=== PATIENT | female | born 1965 | race Caucasian/White ===

== ENCOUNTER → 2018-06-21 07:18 | Outpatient (CLI) | payer OTHER, SELFPAY ==
[2018-06-21 10:53] LABS: Cholesterol 207 mg/dL (200); Glucose 91 mg/dL (74-106); High Density Lipoprotein 79 mg/dL; Thyroid Stim Hormone (TSH) 3.88 uIU/mL (0.358-3.74); Triglycerides 64 mg/dL; Very Low Density Lipoprotein 13 mg/dL (5-40)
[2018-06-29 11:16] LABS: HPV HC, High Risk Negative (Negative)
[2018-06-29 11:48] LABS: HPV Reflexed? YES, CHARGE PATIENT
== END ==
PROVIDERS: Family Provider Family Medicine; PCP Family Medicine; Visit Provider Family Medicine
DX: Z12.4 Encounter for screening for malignant neoplasm of cervix (principal); Z01.419 Encounter for gynecological examination (general) (routine) without abnormal findings
CPT/HCPCS: 36415; 80061; 82947; 84443; 87624; 88175; G0145

== ENCOUNTER → 2018-11-24 12:01 | Outpatient (CLI) | payer OTHER, SELFPAY ==
--- NOTE | 2018-11-24 12:07 | BI_ITS ---
MAMMOGRAPHY - BILATERAL SCREENING REASON FOR EXAM: Female, 53 years old. Routine annual screening examination. PERTINENT HISTORY: Non-contributory. TECHNIQUE: Digital bilateral breast jessica (3D mammographic acquisition) in the CC and MLO projections. 2-D mediolateral oblique (MLO) and craniocaudad (CC) views of both breasts were obtained. CAD: Full Field Digital Mammography with Computer Added Detection was performed. COMPARISON: Comparison is made with prior study dated August 13, 2017 and October 27, 2015. FINDINGS: Breast Composition: The breasts are extremely dense, which lowers the sensitivity of mammography. There are no dominant masses or suspicious calcifications. No other significant abnormalities are identified. There has been no significant change since the prior study. BI/SCREENING MAMM (CAD), BILAT IMPRESSION: Stable bilateral screening mammogram. Yearly follow-up mammogram recommended. (A) ASSESSMENT CATEGORY: BIRADS Category 1: Negative. A letter regarding these results will be sent to the patient by the facility within 30 days. Approximately 10% of breast cancers are not detected by mammography. A normal mammogram should not delay biopsy of a clinically suspicious abnormality. [id number] Electronically Signed: Filiberto Bolivar MD at 13:28 EST Tel [phone], Service support ,
== END ==
PROVIDERS: Family Provider Family Medicine; PCP Family Medicine; Visit Provider Nurse Practitioner Adult Health
DX: Z12.31 Encounter for screening mammogram for malignant neoplasm of breast (principal)
CPT/HCPCS: 77063; 77067

== ENCOUNTER → 2019-03-27 11:13 | Outpatient (CLI) | payer OTHER, SELFPAY ==
[2019-03-27 14:17] LABS: Ferritin 62 ng/mL (8-252); Follicle Stimulating Hormone 115.3 mIU/mL; Luteinizing Hormone 51.4 mIU/mL; T4 Free Direct 0.93 ng/dL (0.76-1.46); Thyroid Stim Hormone (TSH) 2.62 uIU/mL (0.358-3.74)
== END ==
PROVIDERS: Family Provider Family Medicine; PCP Family Medicine; Referring Provider Family Medicine; Visit Provider Family Medicine
DX: R79.89 Other specified abnormal findings of blood chemistry (principal); N95.1 Menopausal and female climacteric states; Z86.2 Personal history of diseases of the blood and blood-forming organs and certain disorders involving the immune mechanism
CPT/HCPCS: 36415; 82728; 83001; 83002; 84439; 84443

== ENCOUNTER → 2020-10-21 11:24 | Outpatient (CLI) | payer OTHER, SELFPAY | PROVIDERS: PCP Family Medicine; Referring Provider Family Medicine; Visit Provider Registered Nurse | DX: Z20.828 Contact with and (suspected) exposure to other viral communicable diseases (principal) | CPT/HCPCS: 87635; U0003 ==

== ENCOUNTER → 2021-04-03 07:58 | Outpatient (CLI) | payer OTHER, SELFPAY ==
[2021-04-03 10:09] LABS: Absolute Neutrophil Count 2.9 X10^3/uL (2.0-7.7); Basophil# 0.06 X10^3/uL; Basophil% 1.1 % (0-1); Eosinophils% 1.8 % (0-5); Hematocrit 44.8 % (37-47); Hemoglobin 14.2 g/dL (12.0-15.0); Mean Corp Hgb Conc 31.7 g/dL (32-36); Mean Corpuscular Hgb 28.8 pg (27.0-32.0); Mean Corpuscular Volume 90.9 fL (81-99); Mean Platelet Vol. 10.9 fl (6.2-12.0); Monocyte# 0.53 X10^3/uL; Monocyte% 9.3 % (0-10); NRBC Flagged by Analyzer 0 % (0-5); Neutrophil # 2.88 X10^3/uL (2.7-7.7); Neutrophil % 50.6 % (47-70); Platelet Count 244 K/mm3 (150-450); RBC Distribution Width CV 11.9 % (11.6-14.6); RBC Distribution Width SD 40.1 fl (35.1-43.9); Red Blood Count 4.93 M/mm3 (4.2-5.4); White Blood Count 5.7 K/mm3 (4.4-11.0)
[2021-04-03 10:35] LABS: Cholesterol 220 mg/dL (200); High Density Lipoprotein 94 mg/dL; Thyroid Stim Hormone (TSH) 3.97 uIU/mL (0.358-3.74)
[2021-04-04 09:15] LABS: T4 Free Direct 0.95 ng/dL (0.76-1.46)
== END ==
PROVIDERS: PCP Family Medicine; Referring Provider Family Medicine; Visit Provider Family Medicine
DX: Z13.220 Encounter for screening for lipoid disorders (principal); K13.79 Other lesions of oral mucosa; R79.89 Other specified abnormal findings of blood chemistry
CPT/HCPCS: 36415; 82465; 83718; 84439; 84443; 85025

== ENCOUNTER → 2021-05-01 11:59 | Outpatient (CLI) | payer OTHER, SELFPAY ==
--- NOTE | 2021-05-01 12:01 | BI_ITS ---
MAMMOGRAPHY - BILATERAL SCREENING REASON FOR EXAM: Female, 56 years old. Routine annual screening examination. PERTINENT HISTORY: Non-contributory. TECHNIQUE: Digital bilateral breast eli (3D mammographic acquisition) in the CC and MLO projections. 2-D mediolateral oblique (MLO) and craniocaudad (CC) views of both breasts were obtained. CAD: Full Field Digital Mammography with Computer Added Detection was performed. COMPARISON: Comparison is made with prior study dated 11/24/2018 and 08/13/2017. FINDINGS: Breast Composition: The breasts are extremely dense, which lowers the sensitivity of mammography. There are no dominant masses or suspicious calcifications. No other significant abnormalities are identified. There has been no significant change since the prior study. BI/SCRN MAMM (CAD)W/ELI BILAT IMPRESSION: Stable bilateral screening mammogram. Yearly follow-up mammogram recommended. (A) ASSESSMENT CATEGORY: BIRADS Category 1: Negative. A letter regarding these results will be sent to the patient by the facility within 30 days. Approximately 10% of breast cancers are not detected by mammography. A normal mammogram should not delay biopsy of a clinically suspicious abnormality. [id number] Electronically Signed: Filiberto Bolivar MD at 12:56 EDT , Service support ,
== END ==
PROVIDERS: PCP Family Medicine; Referring Provider Obstetrics & Gynecology; Visit Provider Obstetrics & Gynecology
DX: Z12.31 Encounter for screening mammogram for malignant neoplasm of breast (principal)
CPT/HCPCS: 77063; 77067

== ENCOUNTER → 2023-04-22 | Outpatient (CLI) | payer OTHER, SELFPAY ==
--- NOTE | 2023-04-22 09:59 | BI_ITS ---
MAMMOGRAPHY - BILATERAL SCREENING REASON FOR EXAM: Female, 58 years old. Routine annual screening examination. PERTINENT HISTORY: Non-contributory. TECHNIQUE: Digital bilateral breast eli (3D mammographic acquisition) in the CC and MLO projections. 2-D mediolateral oblique (MLO) and craniocaudad (CC) views of both breasts were obtained. CAD: Full Field Digital Mammography with Computer Added Detection was performed. COMPARISON: Comparison is made with the prior study dated May 01, 2021 and November 24, 2018. FINDINGS: Breast Composition: The breasts are extremely dense, which lowers the sensitivity of mammography. There are no dominant masses or suspicious calcifications. No other significant abnormalities are identified. There has been no significant change since the prior study. BI/SCRN MAMM (CAD)W/ELI BILAT IMPRESSION: Stable bilateral screening mammogram. Yearly follow-up mammogram recommended. (A) ASSESSMENT CATEGORY: BIRADS Category 1: Negative. A letter regarding these results will be sent to the patient by the facility within 30 days. Approximately 10% of breast cancers are not detected by mammography. A normal mammogram should not delay biopsy of a clinically suspicious abnormality. [id number] Electronically Signed: Filiberto Bolivar MD at 10:42 EDT ,
== END | disposition home or self-care (01) ==
LOC: OPBI 09:56
PROVIDERS: PCP Family Medicine; Referring Provider Obstetrics & Gynecology; Visit Provider Obstetrics & Gynecology
DX: Z12.31 Encounter for screening mammogram for malignant neoplasm of breast (principal)
CPT/HCPCS: 77063; 77067

== ENCOUNTER 2024-07-11 12:53 | Inpatient (IN) | payer OTHER, SELFPAY ==
[2024-07-11] VITALS (8 sets, daily range): BP systolic 92–160; BP diastolic 68–105; PULSE 64–81; RESP 16–22; TEMP 36.6–37.3; O2SAT 96–100; BMI 23.0; BMI 22.2
--- NOTE | 2024-07-11 13:36 | EDS_ITS ---
HPI History of Present Illness Chief Complaint: General Illness Informant: patient Onset/Context/Timing Onset: Days Context: Gradual Onset Timing: Intermittent Current Severity: Mild Maximum Severity: Mild Narrative Narrative: 59-year-old female tested positive for COVID yesterday. She is on Paxlovid. Having nausea vomiting diarrhea for the last 24 hours. Feels lightheaded. Denies dysuria. Denies shortness of breath. 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 Denies any black or bloody stools. Prior similar symptoms: No Recent Illness/Hospitalization: No PFSH PFSH Medical History Addisons disease Home Medications ?Medication ?Instructions ?Recorded ?Last Taken ?Type dexamethasone 6 mg tablet See Rx Instructions PO .COMPLEX 07/11/24 Unknown History STEROID estradiol 0.5 mg/0.5 gram (0.1 %) 1 packet transdermal DAILY HORMONES 07/11/24 Unknown History transdermal gel packet fludrocortisone 0.1 mg tablet 0.05 mg PO DAILY ADDISONS DISEASE 07/11/24 Unknown History nirmatrelvir 300 mg (150 mg 1 tab PO UD COVID 07/11/24 Unknown History x2)-ritonavir 100 mg tablet,dose pack (Paxlovid) progesterone micronized 100 mg 100 mg PO QHS HORMONES 07/11/24 Unknown History capsule Allergy/AdvReac Type Severity Reaction Status Date / Time amoxicillin Allergy RASH Verified 07/11/24 13:05 Social History Smoking Status: Never smoker ROS ROS ED ROS Narrative Nausea, vomiting diarrhea. Cough. Constitutional Constitutional ED: Denies chills or fever(s) Eyes Eyes: Denies blurry vision ENT ENT ED: Denies ear pain Cardiovascular Cardiovascular: Denies chest pain Respiratory/Chest Respiratory/Chest: Reports cough Gastrointestinal Gastrointestinal: Reports diarrhea, nausea and vomiting; Denies abdominal pain, constipation or melena Genitourinary Genitourinary ED: Denies dysuria or hematuria Musculoskeletal Musculoskeletal: Denies arthralgias or back pain Integumentary Denies abscess or Abrasions Neurologic Neurologic: Denies headache(s) Psychiatric Psychiatric: Denies anxiety or depression Endocrine Endocrinology: Denies cold intolerance Hematologic/Lymphatic Hematologic/Lymphatic: Reports none Allergic/Immunologic Allergic/Immunologic ED: Denies mouth swelling, tongue swelling or urticaria EXAM Physical Exam Narrative Exam Narrative: 59-year-old female vital signs are stable afebrile. She does not look septic toxic no acute distress. Pulse ox 98% on room air no hypoxia. Daughter present in room. H EENT exam pupils round reactive light. Currently her mucous membranes are moist and pink. Neck nontender. No lymphadenopathy. Lungs clear to auscultation bilaterally. Heart regular rate and rhythm rate about 65 no murmur. Chest wall ribs are nontender. Abdomen soft nontender. Moving all 4 extremities. 5 out of 5 insurance account specialist strength. Dorsi plantarflexion intact. Nontender. No edema or cords. Neurologically she is awake alert no focal motor deficits. Const Vital Signs: 07/11/24 12:53 07/11/24 13:02 07/11/24 14:46 Temperature 98.2 F Temperature Source Temporal Pulse Rate 67 Respiratory Rate 16 Respiratory Pattern Normal Blood Pressure 160/105 H 101/71 Blood Pressure [Lying] Blood Pressure [Standing (for 1 minute prior to obtaining)] Blood Pressure Mean 123 81 Blood Pressure Mean [Lying] Blood Pressure Mean [Standing (for 1 minute prior to obtaining)] Pulse Ox 98 Oxygen Delivery Method Room Air 07/11/24 15:19 Temperature Temperature Source Pulse Rate Respiratory Rate Respiratory Pattern Blood Pressure Blood Pressure [Lying] 105/76 Blood Pressure [Standing (for 1 minute prior to obtaining)] 101/72 Blood Pressure Mean Blood Pressure Mean [Lying] 85 Blood Pressure Mean [Standing (for 1 minute prior to obtaining)] 81 Pulse Ox Oxygen Delivery Method Positive well nourished and well developed; Negative for cachectic, contractures or unkempt General Appearance ED: well developed; Negative for unkempt, cachectic, contractures or pallor Nutritional Appearance: Negative for cachectic HEENT Reports moist mucous membranes; Denies dry mucous membranes or other Negative for trauma, tenderness or other Mouth ED: No dry mucous membranes Mouth: No dry mucous membranes Eyes PERRL and EOMs intact bilaterally General Eye ED: Negative for pale conjunctiva, scleral icterus or other Neck no lymphadenopathy, supple and no JVD General: Negative for tenderness Lymph Lymphatic: Negative for other Chest Wall inspection of chest normal and palpation of chest normal Chest: Negative for other Resp normal respiratory effort and clear to auscultation bilaterally Effort and Inspection: Negative for retractions Auscultation: Negative for rales, rhonchi, wheezes or diminished lung sounds Cardio regular rate, regular rhythm, S1 normal heart sound, S2 normal heart sound and no murmurs GI normal to inspection, nondistended, normoactive bowel sounds, non-tender, non- distended and no masses Auscultation: normoactive bowel sounds Palpation: soft; Negative for tender or guarding Back/Spine no CVA tenderness General Back: Negative for CVA tenderness Cervical Spine: Negative for cervical spine tenderness Thoracic Spine / Upper Back: Negative for thoracic spinal tenderness Lumbar Spine / Lower Back: Negative for lumbar spinal tenderness Extremity normal to inspection General Extremety ED: Negative for edema or tenderness General Extremity: Negative for edema Neuro oriented x3 and CN's II-XII intact bilaterally Sensorium / Orientation: alert; Negative for orientation impaired, lethargic or stuporous Motor Exam: strength 5/5 throughout Psych mental status grossly normal Appearance: Negative for unkempt Attitude: No agitated Mood & Affect: Negative for depressed or tearful Skin no rashes or lesions noted and no wounds General Skin Exam: Negative for jaundice or pallor Lesions: No lesion noted Rashes: No rashes noted Trauma: Negative for abrasion Wounds: Negative for wounds noted MDM MDM MDM Narrative Medical decision making narrative: 59-year-old female history of Alexander's with COVID and on Paxlovid with nausea, vomiting diarrhea. Clinically she looks well. She is anxious. I do not think this is an Alexander's crisis. I think she is just dehydrated. She will be treated IV fluids. Will get screening labs. Repeat exam at 3:30 PM. Patient doing well. Resting comfortably. Feeling somewhat improved. She did get a liter normal saline. Right now she is drinking some Gatorade and eating some crackers. I discussed with her her test results. Her sodium is only 121. She said a week ago she had labs at the [facility] and she believes her sodium was around 135 at that time. I explained to her we need to admit her to the hospital and continue to improve on her sodium level. She is comfortable with the plan. Hospitalist on page. History & Record Review Discussion w/independent historian: Patient and Family Additional record(s) reviewed:: Prior inpatient record, Prior outpatient record, Prior ED visit and Prior labs Lab Data Attestation: I reviewed the patient's lab results. Lab results narrative: CBC unremarkable white count of 4. H&H 12.4 and 36.5. Platelets 159. Electrolytes show sodium 121. Gap 6. BUN and creatinine normal at 13 and 0.6. Glucose 112. Labs: Laboratory Results - last 24 hr 07/11/24 13:47 WBC 4.3 L RBC 4.15 L Hgb 12.4 Hct 36.5 L MCV 88.0 MCH 29.9 MCHC 34.0 RDW Std Deviation 38.3 RDW Coeff of Thanh 11.9 Plt Count 159 MPV 10.5 Immature Gran % (Auto) 0.500 Neut % (Auto) 80.0 H Lymph % (Auto) 9.3 L [place] % (Auto) 9.3 Eos % (Auto) 0.0 Baso % (Auto) 0.9 Absolute Neuts (auto) 3.4 Absolute Lymphs (auto) 0.40 L Nucleated RBC % 0 Sodium 121 L Potassium 3.6 Chloride 90 L Carbon Dioxide 25.0 Anion Gap 6 BUN 13 Creatinine 0.65 Estim Creat Clear Calc 95.17 Est GFR (MDRD) Af Amer 120 Est GFR (MDRD) Non-Af 99 BUN/Creatinine Ratio 20.0 Glucose 112 H Calcium 7.8 L Rhythm Strip Rhythm Strip: Sinus Rhythm Rate: 72 Ectopy: None EKG Initial EKG: Attestation: I personally reviewed and interpreted this EKG as follows: Interpretation: Sinus Rhythm and No Acute Injury Pattern Comments: Normal sinus rhythm. Rate of 72. No acute signs of IN or ischemia. Discharge Plan Triage Chief Complaint: General Illness ED Provider: Jaycob Duron Dx/Rx/DC Orders Prescriptions: No Action dexamethasone 6 mg tablet See Rx Instructions PO .COMPLEX Patient Comments: THIS IS A NEW SCRIPT THAT HAS BEEN FILLED YESTERDAY (07/10/24) AT [facility] [employer]. IT HAS NOT YET BEEN PICKED UP. Rx Instructions: USE DIRECTED. TAKE ONE TABLET (6MG) BY MOUTH ONCE DAILY FOR 5 DAYS THNE TAKE 1/2 TABLET (3MG) BY MOUTH FOR 4 DAYS. fludrocortisone 0.1 mg tablet 0.05 mg PO DAILY progesterone micronized 100 mg capsule 100 mg PO QHS estradiol 0.5 mg/0.5 gram (0.1 %) gel in packet 1 packet transdermal DAILY Paxlovid 300 mg (150 mg x 2)-100 mg tablets,dose pack 1 tab PO UD Rx Instructions: TAKE DIRECTED VIA DIRECTIONS IN THE PACKAGE. Primary Care Provider: Flaco Fleming Referrals: Flaco Fleming MD [Primary Care Provider] - Print Language: Icelandic
[2024-07-11] MEDS: Ondansetron 4 MG/2 ML Vial IV (13:43)
[2024-07-11] MEDS: 0.9% Normal Saline (1000mL) 1,000 ML 1000 ML IV (13:43)
[2024-07-11 14:12] LABS: Absolute Neutrophil Count 3.4 X10^3/uL (2.0-7.7); Basophil# 0.04 X10^3/uL; Basophil% 0.9 % (0-1); Hematocrit 36.5 % (37-47); Hemoglobin 12.4 g/dL (12.0-15.0); Lymphocyte % 9.3 % (19-41); Mean Corpuscular Hgb 29.9 pg (27.0-32.0); Mean Platelet Vol. 10.5 fl (6.2-12.0); Monocyte% 9.3 % (0-10); NRBC Flagged by Analyzer 0 % (0-5); Neutrophil # 3.43 X10^3/uL (2.7-7.7); POSITIVE DIFFERENTIAL YES; Platelet Count 159 K/mm3 (150-450); RBC Distribution Width CV 11.9 % (11.6-14.6); RBC Distribution Width SD 38.3 fl (35.1-43.9); Red Blood Count 4.15 M/mm3 (4.2-5.4); White Blood Count 4.3 K/mm3 (4.4-11.0)
[2024-07-11 14:17] LABS: Anion Gap 6 (5-15); BUN 13 mg/dL (7-18); Calcium,Total 7.8 mg/dL (8.5-10.1); Chloride 90 mmol/L (98-107); Creatinine, Serum 0.65 mg/dL (0.55-1.02); EST Glomerular Filtration Rate 99 mL/min (>60); Est Glom Filt Rate - Afr Amer 120 mL/min (>60); Estimated Creatinine Clearance 95.17 ml/min; Glucose 112 mg/dL (74-106); Potassium 3.6 mmol/L (3.5-5.1); Sodium Level 121 mmol/L (136-145)
--- NOTE | 2024-07-11 15:40 | HP.PCM.HOS_ITS ---
[facility] - General General Date of Admission: 07/11/24 Date of Service: 07/11/24 Chief Complaint: Nausea vomiting since today. Diagnosed COVID about 2 days ago HPI Narrative GINETTE MANCERA, is a 59 F came to ED with nausea and vomiting that started about 2 AM today. She said her son tested positive for COVID about 4 days ago on Wednesday. She was having symptoms of sore throat cough predominantly dry, middle- age therefore she tested yesterday for COVID and was positive. She was given Paxlovid which she started last evening. After that she started having nausea and vomiting, large quantity x 2. She also had one-time loose bowel movement. She feels chills and cold but no fever on measurement. 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 Her sodium came very low 121 therefore 1 L of normal saline bolus was given in ED and called for admission. [facility] Medical History Addisons disease Home Medications ?Medication ?Instructions ?Recorded ?Last Taken ?Type dexamethasone 6 mg tablet See Rx Instructions PO .COMPLEX 07/11/24 Unknown History STEROID estradiol 0.5 mg/0.5 gram (0.1 %) 1 packet transdermal DAILY HORMONES 07/11/24 Unknown History transdermal gel packet fludrocortisone 0.1 mg tablet 0.05 mg PO DAILY ADDISONS DISEASE 07/11/24 Unknown History nirmatrelvir 300 mg (150 mg 1 tab PO UD COVID 07/11/24 Unknown History x2)-ritonavir 100 mg tablet,dose pack (Paxlovid) progesterone micronized 100 mg 100 mg PO QHS HORMONES 07/11/24 Unknown History capsule Allergy/AdvReac Type Severity Reaction Status Date / Time amoxicillin Allergy RASH Verified 07/11/24 13:05 Social History Smoking Status: Never smoker ROS ROS Narrative Constitutional: Reports fatigue and weakness. No fever. HEENT: Reports systems reviewed and no addt'l complaints, except as documented Respiratory/Chest: No acute shortness of breath or respiratory distress or wheezing. CVS: No chest pain pressure or tightness Gastrointestinal: No abdominal pain. Patient has described in HPI Genitourinary: Denies burning urination or new urinary tract symptoms Musculoskeletal: Denies acute joint pain or limited range of motion. No acute injury Neurologic: Denies seizure-like symptoms. skin: No ulcer. No rash Endocrinology: Reports systems reviewed and no addt'l complaints, except as documented Hematologic/Lymphatic: Reports systems reviewed and no addt'l complaints, except as documented Rest 14 ROS are negative except as mentioned in HPI Vital Signs Vital Signs Vital Signs: 07/11/24 12:53 07/11/24 13:02 07/11/24 14:46 Temperature 98.2 F Temperature Source Temporal Pulse Rate 67 Respiratory Rate 16 Respiratory Pattern Normal Blood Pressure 160/105 H 101/71 Blood Pressure [Lying] Blood Pressure [Standing (for 1 minute prior to obtaining)] Blood Pressure Mean 123 81 Blood Pressure Mean [Lying] Blood Pressure Mean [Standing (for 1 minute prior to obtaining)] Pulse Ox 98 Oxygen Delivery Method Room Air 07/11/24 15:19 Temperature Temperature Source Pulse Rate Respiratory Rate Respiratory Pattern Blood Pressure Blood Pressure [Lying] 105/76 Blood Pressure [Standing (for 1 minute prior to obtaining)] 101/72 Blood Pressure Mean Blood Pressure Mean [Lying] 85 Blood Pressure Mean [Standing (for 1 minute prior to obtaining)] 81 Pulse Ox Oxygen Delivery Method Weight Weight: 151 lb 6 oz Body Mass Index (BMI) 23.0 Physical Exam Narrative General: Alert, Oriented x3, Cooperative. BMI 23.0 kg per square HEENT: Atraumatic, PERRLA, EOMI, Normocephalic Oral: Oral mucosa dry no Gingival or Mucosal Lesions/ Ulcerations Neck: Supple, No JVD, Negative Carotid Bruits Chest wall/Lungs: Air entry diminished in bilateral lung bases. No crepitation/rhonchi Cardiovascular: Regular rate, Regular Rhythm, Normal S1, Normal S2, No M/G/R Abdomen: Bowel Sounds Present, Soft, Non Tender, Non-Distended : No dysuria. No renal angle tenderness. No suprapubic tenderness. Extremities: No edema, Capillary Refill Less than 3 Seconds Skin: No rashes, No breakdown Musculoskeletal: No Tenderness to Palpation of Joints or Extremities Neurological: Cranial nerves II-XII grossly intact, DTR 2+/4. No acute focal neurological deficit. Psych/Mental Status: Flat affect. Results Lab / Micro Data 07/11/24 13:47 08/20/24 15:54 Labs: Laboratory Results - last 24 hr 07/11/24 13:47: WBC 4.3 L, RBC 4.15 L, Hgb 12.4, Hct 36.5 L, MCV 88.0, MCH 29.9, MCHC 34.0, RDW Std Deviation 38.3, RDW Coeff of Thanh 11.9, Plt Count 159, MPV 10.5, Immature Gran % (Auto) 0.500, Neut % (Auto) 80.0 H, Lymph % (Auto) 9.3 L, [place] % (Auto) 9.3, Eos % (Auto) 0.0, Baso % (Auto) 0.9, Absolute Neuts (auto) 3.4, Absolute Lymphs (auto) 0.40 L, Nucleated RBC % 0, Sodium 121 L, Potassium 3.6, Chloride 90 L, Carbon Dioxide 25.0, Anion Gap 6, BUN 13, Creatinine 0.65, Estim Creat Clear Calc 95.17, Est GFR (MDRD) Af Amer 120, Est GFR (MDRD) Non-Af 99, BUN/Creatinine Ratio 20.0, Glucose 112 H, Calcium 7.8 L Assessment & Plan Assessment/Plan (1) Hyponatremia: PLAN: Plan This is 51-year-old female came to ED for having nausea and vomiting for 1 day and diagnosed COVID about 2 days ago on Paxlovid 1. Severe hyponatremia: Sodium is low 121, very low not explained by 2 times vomiting and one-time loose bowel movement. Patient had 1 L of normal saline and sodium came up 122. Last sodium was 139 in August 2016. IV fluid normal saline 100 mL/h for 1 L and check sodium every 4 hourly so that sodium rises 6 to 8 mEq in 24 hours. 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 After blood is drawn, started on IV hydrocortisone 50 mg every 8 hours for first 24 hours and continues to oral if symptoms improved. TSH normal 3. Pemphigus vulgaris: In remission. DVT prophylaxis, moderate risk: Enoxaparin 40 mg subcu daily. Living will/advanced directive/end of life care: Patient does not have living will or advanced directive. After discussion of benefits/risks procedures involved with full code, DNR CC arrest and DNR CC, the patient opted for full code. Patient does want artificial life support including intubation, tube feed, ventilator and/chest compression, central venous catheter, vasopressor and DC shock if needed Total time spent in [id number] encounter in discussion of advanced directive 17 minutes. Laboratory Results 07/11/24 13:47: WBC 4.3 L, RBC 4.15 L, Hgb 12.4, Hct 36.5 L, MCV 88.0, MCH 29.9, MCHC 34.0, RDW Std Deviation 38.3, RDW Coeff of Thanh 11.9, Plt Count 159, MPV 10.5, Immature Gran % (Auto) 0.500, Neut % (Auto) 80.0 H, Lymph % (Auto) 9.3 L, [place] % (Auto) 9.3, Eos % (Auto) 0.0, Baso % (Auto) 0.9, Absolute Neuts (auto) 3.4, Absolute Lymphs (auto) 0.40 L, Nucleated RBC % 0, Sodium 121 L, Potassium 3.6, Chloride 90 L, Carbon Dioxide 25.0, Anion Gap 6, BUN 13, Creatinine 0.65, Estim Creat Clear Calc 95.17, Est GFR (MDRD) Af Amer 120, Est GFR (MDRD) Non-Af 99, BUN/Creatinine Ratio 20.0, Glucose 112 H, Calcium 7.8 L 07/11/24 15:54: Sodium 122 L, Magnesium 1.8, TSH 0.459 Charges/Coding Visit Charges Inpatient E&M: 18391 Init Hosp L3 Procedures Hospitalists Procedures: 80024 Advncd Care Plan 30 Min
--- NOTE | 2024-07-11 15:44 | EKG12_ITS ---
Test Reason : Blood Pressure : / mmHG Vent. Rate : 072 BPM Atrial Rate : 072 BPM P-R Int : 190 ms QRS Dur : 090 ms QT Int : 430 ms P-R-T Axes : 057 041 054 degrees QTc Int : 470 ms Normal sinus rhythm Normal ECG Confirmed by AMANDA WARD, MARYANNE ([id number]), outsole compressor BASIL JERRY ([id number]) on 07/14/2024 6:33:39 AM Referred By: Confirmed By:MARTELL PATEL MD
[2024-07-11 16:30] LABS: Magnesium 1.8 mg/dL (1.6-2.6); Sodium Level 122 mmol/L (136-145); Thyroid Stim Hormone (TSH) 0.459 uIU/mL (0.358-3.740)
[2024-07-11] MEDS: 0.9% Normal Saline (1000mL) 1,000 ML 100 ML IV (17:14)
[2024-07-11] MEDS: Potassium Chloride Oral Tablet 20 MEQ 40 MEQ PO (17:41)
[2024-07-11] MEDS: Enoxaparin 40 MG/0.4 ML Syringe SC (17:41)
[2024-07-11 17:56] LABS: Bacteria 0 SEEN /hpf (None Seen); Mucous, Urine 0 SEEN /hpf (<or=2+); Red Blood Cells-Urine 0 SEEN /hpf (0-5); White Blood Cells 0 SEEN /hpf (0-5)
[2024-07-11 18:22] LABS: Creatinine, Urine (random) < 13.00 mg/dL (NO RANGE EST.); Protein, Urine (Random) < 6.0 mg/dL (<11.9); Urine Sodium 30 mmol/L (Not Establ.)
[2024-07-11 18:27] LABS: Color, Urine Straw (Yellow); Glucose, Dipstick Normal (Normal); Ketone-Dipstick Negative (Negative); Leukocyte Esterase-Dipstick Negative /ul (Negative); Nitrite-Dipstick Negative (Negative); Occult Blood-Urine Negative /ul (Negative); Protein-Dipstick Negative (Negative); Specific Gravity, Urine 1.005 (1.002-1.030); Urine Bilirubin Dipstick Negative (Negative); Urine Clarity Clear (Clear); Urine Urobilinogen Normal (Normal)
[2024-07-11 18:31] LABS: Osmolality, Urine 85 mOsm/KG
[2024-07-11 18:46] LABS: Urine Chloride 22 mmol/L (Not Establ.); Urine Potassium 3.4 mmol/L (Not Establ.)
[2024-07-11 18:54] LABS: Squamous Epithelial Cells - UA 0-5 SEEN /hpf (5-10)
[2024-07-11 20:49] LABS: Osmolality, Serum 273 mOsm/KG (275-295); Sodium Level 133 mmol/L (136-145)
[2024-07-11] MEDS: Hydrocortisone Sod Succinate 100 MG/2 ML Vial 50 MG IV (21:06)
[2024-07-11] MEDS: Acetaminophen 500 MG Tablet 1000 MG PO (22:34)
[2024-07-12 00:44] LABS: Sodium Level 134 mmol/L (136-145)
[2024-07-12 02:39] VITALS: BP 92/68; PULSE 58; RESP 14; TEMP 36.7; O2SAT 97
[2024-07-12 02:41] VITALS: BP 92/68; PULSE 58; RESP 14; TEMP 36.7; O2SAT 97
[2024-07-12 04:26] LABS: Basophil# 0.03 X10^3/uL; Basophil% 0.9 % (0-1); Hematocrit 36.5 % (37-47); Hemoglobin 12.4 g/dL (12.0-15.0); Lymphocyte % 24.5 % (19-41); Mean Corpuscular Hgb 30.3 pg (27.0-32.0); Mean Corpuscular Volume 89.2 fL (81-99); Monocyte# 0.37 X10^3/uL; Monocyte% 11.3 % (0-10); NRBC Flagged by Analyzer 0 % (0-5); Neutrophil # 2.04 X10^3/uL (2.7-7.7); Neutrophil % 62.7 % (47-70); Platelet Count 162 K/mm3 (150-450); RBC Distribution Width SD 39.6 fl (35.1-43.9); Red Blood Count 4.09 M/mm3 (4.2-5.4); White Blood Count 3.3 K/mm3 (4.4-11.0)
[2024-07-12 04:52] LABS: Anion Gap 7 (5-15); BUN 7 mg/dL (7-18); Calcium,Total 8.3 mg/dL (8.5-10.1); Chloride 106 mmol/L (98-107); Creatinine, Serum 0.64 mg/dL (0.55-1.02); EST Glomerular Filtration Rate 102 mL/min (>60); Est Glom Filt Rate - Afr Amer 123 mL/min (>60); Estimated Creatinine Clearance 100.13 ml/min; Glucose 112 mg/dL (74-106); Potassium 4.1 mmol/L (3.5-5.1); Sodium Level 136 mmol/L (136-145)
[2024-07-12] MEDS: Hydrocortisone Sod Succinate 100 MG/2 ML Vial 50 MG IV ×2 (05:30→13:54)
[2024-07-12 07:00] VITALS: PULSE 54
[2024-07-12 08:22] VITALS: BP 99/77; PULSE 70; RESP 16; TEMP 36.7; O2SAT 95
[2024-07-12] MEDS: Fludrocortisone Acetate 0.1 MG Tablet 0.05 MG PO (08:41)
[2024-07-12] MEDS: Enoxaparin 40 MG/0.4 ML Syringe SC (08:41)
[2024-07-12 12:48] LABS: Anion Gap 5 (5-15); BUN 8 mg/dL (7-18); BUN/Creat Ratio 12.3 RATIO (10-20); Calcium,Total 8.4 mg/dL (8.5-10.1); Chloride 105 mmol/L (98-107); Creatinine, Serum 0.65 mg/dL (0.55-1.02); EST Glomerular Filtration Rate 99 mL/min (>60); Est Glom Filt Rate - Afr Amer 120 mL/min (>60); Estimated Creatinine Clearance 98.59 ml/min; Glucose 96 mg/dL (74-106); Potassium 3.9 mmol/L (3.5-5.1); Sodium Level 135 mmol/L (136-145)
--- NOTE | 2024-07-12 13:37 | DCINST_ITS ---
Discharge Instructions Diet Discharge Diet: Low fat / Low cholesterol Activity Discharge Activity: Return to Normal Activity Weight Bearing Status: Weight bearing as tolerated Dressing / Incision Call your doctor if you observe: Fever of 101 or Higher, Shortness of breath, Dizziness, Swelling in the ankles and Chest pain Follow Up Care Test Results: Test results from this visit will be discussed in further detail at your follow- up appointment, if applicable. Discharge Plan Admission Admit Date/Time: 07/11/24 15:35 Primary Reason for Your Visit: hyponatremia, covid Attending Provider: Tosin Dubon Primary Care Provider: Flaco Fleming Consulting Providers: Varun Kumar Instructions Patient Instructions: Coronavirus Disease 2019 (COVID-19): Overview, Coronavirus Disease 2019 (COVID-19): Caring for Yourself or Others Discharge Orders/Prescriptions Prescriptions: Continued dexamethasone 6 mg tablet See Rx Instructions PO .COMPLEX Patient Comments: THIS IS A NEW SCRIPT THAT HAS BEEN FILLED YESTERDAY (07/10/24) AT [facility]. IT HAS NOT YET BEEN PICKED UP. Rx Instructions: USE DIRECTED. TAKE ONE TABLET (6MG) BY MOUTH ONCE DAILY FOR 5 DAYS THNE TAKE 1/2 TABLET (3MG) BY MOUTH FOR 4 DAYS. fludrocortisone 0.1 mg tablet 0.05 mg PO DAILY progesterone micronized 100 mg capsule 100 mg PO QHS estradiol 0.5 mg/0.5 gram (0.1 %) gel in packet 1 packet transdermal DAILY Discontinued Paxlovid 300 mg (150 mg x 2)-100 mg tablets,dose pack 1 tab PO UD Rx Instructions: TAKE DIRECTED VIA DIRECTIONS IN THE PACKAGE. Referrals / Follow Up: Flaco Fleming MD [Primary Care Provider] - Within 1 Week Disposition Disposition (needs filled in before D/C Order can be placed): Home, Self Care
--- NOTE | 2024-07-12 13:38 | PCM.DC.SUM ---
Providers Date of Admission: 07/11/24 Date of Discharge: 07/12/24 Primary Care Physician: Dr. Flaco Fleming MD Reason For Visit: HYPONATREMIA. N/V/D Diagnosis Discharge Diagnosis (1) Hyponatremia: Status: Acute Code(s): E87.1 - Hypo-osmolality and hyponatremia Medications at Discharge Home Medications dexamethasone 6 mg tablet See Rx Instructions PO .COMPLEX STEROID 07/11/24 estradiol 0.5 mg/0.5 gram (0.1 %) transdermal gel packet 1 packet transdermal DAILY HORMONES 07/11/24 fludrocortisone 0.1 mg tablet 0.05 mg PO DAILY ADDISONS DISEASE 07/11/24 progesterone micronized 100 mg capsule 100 mg PO QHS HORMONES 07/11/24 hydrocortisone 5 mg tablet See Rx Instructions PO TID addisons 07/12/24 Hospital Course Operations None Procedures None Summary of Care Provided Minutes Spent on Discharge: 48 Hospital Course: Patient is a 59-year-old female with past medical history as outlined including recent diagnosis of COVID 2 days prior to admission as well as history of Danese's disease who came into the ED on 07/11/2024 with a complaint of nausea and vomiting which started in the early hours of the day of admission. She had started having sore throat, cough and nausea and vomiting and tested for COVID as her son had been diagnosed with COVID about 4 days prior. She did test positive for COVID and started on Paxlovid. However started having nausea and vomiting and had 2 episodes of large emesis and also 1 loose bowel movement. She was on hydrocortisone tablet which she says she had been compliant with. On arrival in the ED labs done showed sodium of 129. Vitals were otherwise stable. She was admitted and managed for hyponatremia as well as COVID-19 infection. She was hydrated with IV fluids. His sodium subsequently came up and normalized. Patient felt much better. She says she wanted to stop taking the Paxlovid as she felt that it gave her the nausea and vomiting. She was on room air and also felt she did not meet the needed so Paxlovid was discontinued upon discharge. She remained stable and was discharged on 07/12/2024. She is follow-up with her primary care doctor with 2 weeks. She was continue taking her prescription for p.o. Decadron that she had been given by her PCP to complete the course of treatment. She is to follow-up with her primary care doctor within 1 to 2 days. He was discharged home on 07/12/2024 and is also to follow-up with her surgical nurse. Patient seen and examined prior to discharge. She felt much better and had no complaints. She had an uneventful night. Review of symptoms otherwise negative. Labs and vitals reviewed. Home medication reviewed and reconciled. Physical Exam Const alert, oriented x3 and no apparent distress General Appearance: cooperative, comfortable and well kempt Orientation / Consciousness: awake Exam Limitations: no limitations HEENT normocephalic, head/scalp atraumatic, hearing grossly normal bilaterally and moist oral mucous membranes Mouth: oral and palatal mucosa normal Eyes PERRL, EOMs intact bilaterally and conjunctivae normal Resp normal respiratory effort, no retractions, no use of accessory muscles and clear to auscultation bilaterally Cardio regular rate, regular rhythm, S1 normal heart sound, S2 normal heart sound and no murmurs GI normal to inspection, nondistended, normoactive bowel sounds, soft to palpation and non-tender Extremity normal to inspection, full ROM and no clubbing, cyanosis or edema Skin no rashes or lesions noted and no wounds Neuro oriented x3, CN's II-XII intact bilaterally, moves all extremities and no focal motor deficits Sensorium / Orientation: awake and alert Motor Exam: strength 5/5 throughout Psych affect normal Weight / BMI Weight Weight: 150 lb 9.211 oz Body Mass Index (BMI) 22.2 ABG / Lab / Microbiology Data 07/12/24 04:05 07/12/24 12:06 Laboratory: Laboratory Results - last 24 hr 07/11/24 13:47: WBC 4.3 L, RBC 4.15 L, Hgb 12.4, Hct 36.5 L, MCV 88.0, MCH 29.9, MCHC 34.0, RDW Std Deviation 38.3, RDW Coeff of Thanh 11.9, Plt Count 159, MPV 10.5, Immature Gran % (Auto) 0.500, Neut % (Auto) 80.0 H, Lymph % (Auto) 9.3 L, Foster % (Auto) 9.3, Eos % (Auto) 0.0, Baso % (Auto) 0.9, Absolute Neuts (auto) 3.4, Absolute Lymphs (auto) 0.40 L, Nucleated RBC % 0, Sodium 121 L, Potassium 3.6, Chloride 90 L, Carbon Dioxide 25.0, Anion Gap 6, BUN 13, Creatinine 0.65, Estim Creat Clear Calc 95.17, Est GFR (MDRD) Af Amer 120, Est GFR (MDRD) Non-Af 99, BUN/Creatinine Ratio 20.0, Glucose 112 H, Calcium 7.8 L 07/11/24 15:54: Sodium 122 L, Magnesium 1.8, TSH 0.459 07/11/24 17:40: Urine Color Straw, Urine Clarity Clear, Urine pH 7.0, Ur Specific [place] 1.005, Urine Protein Negative, Urine Glucose (UA) Normal, Urine Ketones Negative, Urine Occult Blood Negative, Urine Nitrite Negative, Urine Bilirubin Negative, Urine Urobilinogen Normal, Ur Leukocyte Esterase Negative, Urine RBC 0 SEEN, Urine WBC 0 SEEN, Ur Squamous Epith Cells 0-5 SEEN, Urine Bacteria 0 SEEN, Urine Mucus 0 SEEN, Urine Osmolality 85, U Random Total Protein < 6.0, Ur Random Sodium 30, Urine Creatinine < 13.00, Protein/Creatinin Ratio TNP, Urine Potassium 3.4, Urine Chloride 22 07/11/24 20:16: Sodium 133 L, Serum Osmolality 273 L, Cortisol 5.50 07/12/24 00:15: Sodium 134 L 07/12/24 04:05: WBC 3.3 L, RBC 4.09 L, Hgb 12.4, Hct 36.5 L, MCV 89.2, MCH 30.3, MCHC 34.0, RDW Std Deviation 39.6, RDW Coeff of Thanh 12.0, Plt Count 162, MPV 11.0, Immature Gran % (Auto) 0.600, Neut % (Auto) 62.7, Lymph % (Auto) 24.5, Foster % (Auto) 11.3 H, Eos % (Auto) 0.0, Baso % (Auto) 0.9, Absolute Neuts (auto) 2.0, Absolute Lymphs (auto) 0.80 L, Nucleated RBC % 0, Sodium 136, Potassium 4.1, Chloride 106, Carbon Dioxide 23.0, Anion Gap 7, BUN 7, Creatinine 0.64, Estim Creat Clear Calc 100.13, Est GFR (MDRD) Af Amer 123, Est GFR (MDRD) Non-Af 102, BUN/Creatinine Ratio 11.0, Glucose 112 H, Calcium 8.3 L 07/12/24 12:06: Sodium 135 L, Potassium 3.9, Chloride 105, Carbon Dioxide 25.0, Anion Gap 5, BUN 8, Creatinine 0.65, Estim Creat Clear Calc 98.59, Est GFR (MDRD) Af Amer 120, Est GFR (MDRD) Non-Af 99, BUN/Creatinine Ratio 12.3, Glucose 96, Calcium 8.4 L Microbiology: Microbiology 07/11/24 17:40 Mucosa - Nasopharyngeal SARS-CoV-2, Influenza & RSV (PCR) - Final SARS-CoV-2 (COVID 19) D/C Instructions Discharge Diet: Low fat / Low cholesterol Discharge Activity: Return to Normal Activity Weight Bearing Status: Weight bearing as tolerated Call your doctor if you observe: Fever of 101 or Higher, Shortness of breath, Dizziness, Swelling in the ankles and Chest pain Meaningful Use Info Meaningful Use Meaningful Use Diagnoses (Choose all that apply): None applicable Ischemic Stroke Statin Dosing Therapy Reference: STATIN DOSE THERAPY REFERENCE: * Patients > 75 years receive moderate or high dose statin therapy. * Patients 75 years or YOUNGER should receive HIGH intensity statin dose unless contraindicated. You will be required to document reason for non-treatment if statin daily dose does not meet guidelines. HIGH DOSE STATIN THERAPY DAILY Atorvastatin > than or = to 40 mg Rosuvastatin > than or = to 20 mg Amlodipine + Atorvastatin > than or = to 2.5/40 mg Ezetimibe + Simvastatin 10/80 mg Simvastatin 80mg Discharge Plan Admission Admit Date/Time: 07/11/24 15:35 Primary Reason for Your Visit: hyponatremia, covid Attending Provider: Tosin Dubon Primary Care Provider: Flaco Fleming Consulting Providers: Varun Kumar Instructions Patient Instructions: Coronavirus Disease 2019 (COVID-19): Overview, Coronavirus Disease 2019 (COVID-19): Caring for Yourself or Others Discharge Orders/Prescriptions Prescriptions: Continued dexamethasone 6 mg tablet See Rx Instructions PO .COMPLEX Patient Comments: THIS IS A NEW SCRIPT THAT HAS BEEN FILLED YESTERDAY (07/10/24) AT [facility]. IT HAS NOT YET BEEN PICKED UP. Rx Instructions: USE DIRECTED. TAKE ONE TABLET (6MG) BY MOUTH ONCE DAILY FOR 5 DAYS THNE TAKE 1/2 TABLET (3MG) BY MOUTH FOR 4 DAYS. fludrocortisone 0.1 mg tablet 0.05 mg PO DAILY progesterone micronized 100 mg capsule 100 mg PO QHS estradiol 0.5 mg/0.5 gram (0.1 %) gel in packet 1 packet transdermal DAILY Discontinued Paxlovid 300 mg (150 mg x 2)-100 mg tablets,dose pack 1 tab PO UD Rx Instructions: TAKE DIRECTED VIA DIRECTIONS IN THE PACKAGE. Referrals / Follow Up: Flaco Fleming MD [Primary Care Provider] - Within 1 Week Disposition Disposition (needs filled in before D/C Order can be placed): Home, Self Care Charges/Coding Visit Charges Inpatient E&M: 29267 Disch Hosp >30min
[2024-07-12 13:51] VITALS: BP 94/73; PULSE 74; RESP 16; TEMP 36.8; O2SAT 98
--- NOTE | 2024-07-12 14:08 | PHA.DC.MR.R ---
Pharmacy PR Med Reconciliation Pharmacy Service has performed discharge medication reconciliation for this patient. The patient's discharge medication list was reviewed for discrepancies and discrepancies were resolved. Medications at Discharge Home Medications dexamethasone 6 mg tablet See Rx Instructions PO .COMPLEX STEROID 07/11/24 estradiol 0.5 mg/0.5 gram (0.1 %) transdermal gel packet 1 packet transdermal DAILY HORMONES 07/11/24 fludrocortisone 0.1 mg tablet 0.05 mg PO DAILY ADDISONS DISEASE 07/11/24 progesterone micronized 100 mg capsule 100 mg PO QHS HORMONES 07/11/24 hydrocortisone 5 mg tablet See Rx Instructions PO TID addisons 07/12/24
--- NOTE | 2024-07-12 14:41 | CASEMGMT ---
RN CM Face to Face with patient for initial transition planning/care coordination assessment. RN CM introduced self and role at [facility]. Patient lying in bed, alert and oriented. Patient willing to participate in assessment and is able to answer all questions appropriately. Care providers, pharmacy, and demographics verified. Strata: 1 PCP: Lonnie Specialists: Tam, [employer] [facility] Preferred Pharmacy: [facility] Insurance: [employer] Prescription Benefit: yes Living Will/HPOA: yes, [place] LNOK: Living Arrangements: Patient lives with in a 2 story home. Patient is independent and able to ambulate stairs. Transportation: self, DME/HHC: Patient has BP cuff and pulse ox at home. No previous HHC or SNF Patient wishes to discharge home, denies need for home health at this time. Patient states she has no further needs or concerns at this time. CM to follow for discharge planning needs that may arise. Disposition Plan: Patient to discharge home with family support and follow-up plans in place. Saundra GONZALEZ, RN, CM
--- NOTE | 2024-07-12 15:49 | NURSING ---
Pt and family stating they had additional questions that were not answered. This RN notified MD pt and family had questions. Pt and family decided to leave before physician called them. Physician notified pt and family left.
== END 2024-07-12 14:49 | disposition home or self-care (01) | DRG 640 ==
LOC: ED 13:32 → PCU 16:01
PROVIDERS: Admitting Provider Internal Medicine; Emergency Provider Emergency Medicine; PCP Family Medicine; Visit Provider Student in an Organized Health Care Education/Training Program
DX: E87.1 Hypo-osmolality and hyponatremia (principal); U07.1 COVID-19; E27.1 Primary adrenocortical insufficiency
CPT/HCPCS: 36415; 80048; 81001; 82436; 82533; 82570; 83735; 83930; 83935; 84133; 84156; 84295; 84300; 84443; 85025; 87631; 93005; 94668; 99285; J7030; A4216; J2405

== ENCOUNTER → 2024-10-06 | Outpatient (CLI) | payer OTHER, SELFPAY ==
--- NOTE | 2024-10-06 12:50 | BI_ITS ---
MAMMOGRAPHY - BILATERAL SCREENING REASON FOR EXAM: Female, 59 years old. Routine annual screening examination. PERTINENT HISTORY: Non-contributory. TECHNIQUE: Digital bilateral breast eli (3D mammographic acquisition) in the CC and MLO projections. 2-D mediolateral oblique (MLO) and craniocaudad (CC) views of both breasts were obtained. CAD: Full Field Digital Mammography with Computer Added Detection was performed. COMPARISON: Comparison is made with prior study April 22, 2023 and May 01, 2021. FINDINGS: Breast Composition: The breasts are extremely dense, which lowers the sensitivity of mammography. There are no dominant masses or suspicious calcifications. No other significant abnormalities are identified. There has been no significant change since the prior study. BI/SCRN MAMM (CAD)W/ELI BILAT IMPRESSION: Stable bilateral screening mammogram. Yearly follow-up mammogram recommended. (A) ASSESSMENT CATEGORY: BIRADS Category 1: Negative. A letter regarding these results will be sent to the patient by the facility within 30 days. Approximately 10% of breast cancers are not detected by mammography. A normal mammogram should not delay biopsy of a clinically suspicious abnormality. [id number] Electronically Signed: Filiberto Bolivar MD at 15:03 EST ,
== END | disposition home or self-care (01) ==
PROVIDERS: PCP Family Medicine; Referring Provider Obstetrics & Gynecology; Visit Provider Obstetrics & Gynecology
DX: Z12.31 Encounter for screening mammogram for malignant neoplasm of breast (principal)
CPT/HCPCS: 77063; 77067

== ENCOUNTER → 2025-10-05 | Outpatient (CLI) | payer OTHER, SELFPAY ==
--- NOTE | 2025-10-05 12:37 | RAD_ITS ---
PROCEDURE: CERV SPINE 4 OR 5 VIEWS 10/05/2025 REASON FOR EXAM: LUMP IN NECK TECHNIQUE: Procedure Code: [facility] Modality: DX Procedure: CERV SPINE 4 OR 5 VIEWS FINDINGS: No acute fracture. Grade 1 retrolisthesis of C5 on C6 is noted, with severe disc space narrowing, endplate sclerosis, and small marginal osteophytes. A small anterior osteophyte extends off the inferior endplate of C4. The remainder of the cervical spine appears unremarkable, and without significant degenerative changes. The prevertebral soft tissues appear unremarkable. The relationship of C1 on C2 appears normal. RAD/Cerv Spine 4 or 5 Views IMPRESSION: Focal degenerative changes at C5-6, as described above. Reading Location: [id number]
== END | disposition home or self-care (01) ==
LOC: MTRAD 12:36
PROVIDERS: PCP Family Medicine; Referring Provider Family Medicine; Visit Provider Family Medicine
DX: R22.1 Localized swelling, mass and lump, neck (principal)
CPT/HCPCS: 72050